=== PATIENT | female | born 1980 | race African-American/Black ===

== ENCOUNTER 2017-05-16 12:21 | Inpatient (IN) ==
[2017-05-16] MEDS ORDERED: BUTORPHANOL 2 MG/ML VIAL IV PRN (13:12)
[2017-05-16] MEDS ORDERED: ONDANSETRON 4 MG/2 ML VIAL IV PRN ×2 (13:12→18:04)
[2017-05-16] MEDS ORDERED: MEPERIDINE 50 MG/1 ML VIAL IV PRN (13:12)
[2017-05-16] MEDS ORDERED: LACTATED RINGERS 500 ML IV PRN (13:12)
[2017-05-16] MEDS ORDERED: AMPICILLIN INJ 2,000 MG in SODIUM CHLORIDE 0.9% 100 ML IV ONE (13:15)
[2017-05-16] MEDS ORDERED: LACTATED RINGERS 1,000 ML IV SCH (13:30)
[2017-05-16] MEDS ORDERED: OXYTOCIN/LR 20 UNIT/1,000 ML BAG IV SCH (13:30)
[2017-05-16 13:43] LABS: Basophils % 0.1 % (0.0-0.8); Eosinophils # 0.1 10*3/uL (0.0-0.87); Eosinophils % 0.9 % (0.00-10.9); Hematocrit 29.8 VOL% (35.7-47.0); Hemoglobin 9.7 GM/DL (12.0-16.0); Immature Granulocytes % 0.5 %; Immature Granulocytes Absolute 0.07 #; Lymphocytes # 2.4 10*3/uL (1.4-4.0); Lymphocytes % 16.4 % (21.3-54.2); Mean Corpuscular HGB Conc 32.6 GM/DL (32-36); Mean Corpuscular Hemoglobin 27 PG (27-34); Mean Corpuscular Volume 81.4 FL (87-102); Mean Platelet Volume 12.2 FL (9.6-12.0); Monocytes % 7.1 % (1.7-12.7); Neutrophils # 11.1 10*3/uL (1.4-7.4); Platelet Count 195 T/CUMM (130-400); Red Blood Count 3.66 MC/CUMM (3.8-5.5); Red Cell Distribution Width 15.3 % (9.3-17.3); White Blood Count 14.7 T/CUMM (4-12)
[2017-05-16 14:09] LABS: Apearance,Urine CLEAR (Clear); Bilirubin,Urine Negative (Negative); Blood, Urine Negative (Negative); Glucose,Urine (UA) Negative (Negative); Ketones,Urine Negative (Negative); Mucus,Urine Few /LPF (Occasional); Nitrite,Urine Negative (Negative); Protein,Urine Negative; RBC,Urine 1 /HPF (0-4); Squamous Epithelial Cell,Urine Occasional /HPF (0-10); Urine Color Yellow (Yellow); Urine Specific Gravity 1.016 (1.001-1.035); WBC,Urine 1 /HPF (0-6)
[2017-05-16] MEDS ORDERED: AMPICILLIN 1,000 MG VIAL ONE (16:44)
[2017-05-16] MEDS ORDERED: SODIUM CHLORIDE 0.9% 100 ML IV ONE (16:46)
[2017-05-16] MEDS ORDERED: LIDOCAINE 1% 50 ML VIAL ONE (17:44)
[2017-05-16] MEDS ORDERED: AMPICILLIN INJ 1,000 MG in SODIUM CHLORIDE 0.9% 100 ML IV SCH (18:00)
[2017-05-16] MEDS ORDERED: DIPH/TET/ACEL PERT BOOSTER VACCINE 0.5 ML VIAL IM ONE (18:04)
[2017-05-16] MEDS ORDERED: RHO(D) IMMUNE GLOBULIN 300 MCG SYRINGE IM ONE (18:04)
[2017-05-16] MEDS ORDERED: BENZOCAINE 20%/MENTHOL 0.5% SPRAY 56 GM CAN TOP PRN (18:04)
[2017-05-16] MEDS ORDERED: oxyCODONE/ACETAMINOPHEN 5-325 MG TABLET PO PRN (18:04)
[2017-05-16] MEDS ORDERED: GLUCAGON 1 MG VIAL IM PRN (18:04)
[2017-05-16] MEDS ORDERED: OXYTOCIN/LR 20 UNIT/1,000 ML BAG IV ONE (18:04)
[2017-05-16] MEDS ORDERED: BISACODYL 10 MG SUPP RECTAL PRN (18:04)
[2017-05-16] MEDS ORDERED: WITCH HAZEL PADS 100/JAR TOP PRN (18:04)
[2017-05-16] MEDS ORDERED: LANOLIN 50% CREAM 0.3 OZ TUBE TOP PRN (18:04)
[2017-05-16] MEDS ORDERED: MEASLES/MUMPS/RUBELLA VACCINE 0.5 ML VIAL SUBCUT ONE (18:04)
[2017-05-16] MEDS ORDERED: ACETAMINOPHEN 325 MG TABLET PO PRN (18:04)
[2017-05-16] MEDS ORDERED: HYDROCORTISONE 2.5% RECTAL CREAM 30 GM TUBE TOP PRN (18:04)
[2017-05-16] MEDS ORDERED: DEXTROSE 50% 25 GM/50 ML VIAL IV PRN (18:04)
[2017-05-16 18:57] LABS: Barbiturates Screen,Urine Negative (Negative); Benzodiazepines Screen,Urine Negative (Negative); Cannabinoid Screen,Urine Negative (Negative); Opiate Screen,Urine Negative (Negative); Phencyclidine Screen,Urine Negative (Negative)
[2017-05-16] MEDS: DOCUSATE SODIUM 100 MG CAPSULE PO SCH (21:19)
[2017-05-16] MEDS: FERROUS SULFATE 325 MG TABLET PO SCH (21:19)
[2017-05-16] MEDS: oxyCODONE/ACETAMINOPHEN 5-325 MG TABLET PO PRN (23:33)
[2017-05-17] MEDS: IBUPROFEN 800 MG TABLET PO PRN ×2 (03:37→15:12)
[2017-05-17 06:58] LABS: Basophils % 0.1 % (0.0-0.8); Eosinophils # 0.1 10*3/uL (0.0-0.87); Eosinophils % 0.7 % (0.00-10.9); Hematocrit 25.7 VOL% (35.7-47.0); Hemoglobin 8.3 GM/DL (12.0-16.0); Immature Granulocytes % 0.4 %; Immature Granulocytes Absolute 0.06 #; Lymphocytes # 2.8 10*3/uL (1.4-4.0); Lymphocytes % 18.2 % (21.3-54.2); Mean Corpuscular HGB Conc 32.3 GM/DL (32-36); Mean Corpuscular Hemoglobin 26 PG (27-34); Mean Corpuscular Volume 79.3 FL (87-102); Mean Platelet Volume 11.9 FL (9.6-12.0); Monocytes # 1.3 10*3/uL (0.11-0.8); Monocytes % 8.2 % (1.7-12.7); Neutrophils % 72.4 % (38.7-73.9); Platelet Count 169 T/CUMM (130-400); Red Blood Count 3.24 MC/CUMM (3.8-5.5); Red Cell Distribution Width 15.1 % (9.3-17.3); White Blood Count 15.2 T/CUMM (4-12)
[2017-05-17] MEDS: FERROUS SULFATE 325 MG TABLET PO SCH ×3 (09:33→20:55)
[2017-05-17] MEDS: DOCUSATE SODIUM 100 MG CAPSULE PO SCH ×2 (09:33→20:55)
[2017-05-18] MEDS: IBUPROFEN 800 MG TABLET PO PRN (05:35)
[2017-05-18] MEDS: oxyCODONE/ACETAMINOPHEN 5-325 MG TABLET PO PRN (05:35)
[2017-05-18] MEDS: DOCUSATE SODIUM 100 MG CAPSULE PO SCH (08:39)
[2017-05-18] MEDS: FERROUS SULFATE 325 MG TABLET PO SCH (08:39)
[2017-05-18 11:17] VITALS: BP 149/70
[2017-05-18] MEDS ORDERED: INFLUENZA VIRUS VACCINE 0.5 ML SYRINGE IM ONE (14:00)
== END 2017-05-18 14:40 | disposition home or self-care (01) | DRG 560 ==
LOC: N.LDOUT 12:21 → N.LD 12:23 → N.OB 20:53
PROVIDERS: ADMIT Obstetrics & Gynecology; ATTEND Nurse Practitioner Women's Health

== ENCOUNTER 2017-08-15 23:06 | Inpatient (IN) ==
[2017-08-16 01:43] LABS: INR 1.2; PT Patient Result 12.8 SECS
[2017-08-16] MEDS ORDERED: FUROSEMIDE 40 MG/4 ML VIAL ONE (04:00)
[2017-08-16] MEDS ORDERED: MORPHINE 4 MG/1 ML VIAL IV PRN (04:17)
[2017-08-16] MEDS ORDERED: ACETAMINOPHEN 325 MG TABLET PO PRN (04:17)
[2017-08-16] MEDS ORDERED: ONDANSETRON 4 MG/2 ML VIAL IV PRN (04:17)
[2017-08-16 04:59] LABS: Basophils % 0.1 % (0.0-0.8); Eosinophils # 0.1 10*3/uL (0.0-0.87); Eosinophils % 0.5 % (0.00-10.9); Hematocrit 34.3 VOL% (35.7-47.0); Hemoglobin 11.5 GM/DL (12.0-16.0); Immature Granulocytes % 0.3 %; Immature Granulocytes Absolute 0.03 #; Lymphocytes # 5.7 10*3/uL (1.4-4.0); Lymphocytes % 47.9 % (21.3-54.2); Mean Corpuscular HGB Conc 33.5 GM/DL (32-36); Mean Corpuscular Hemoglobin 26 PG (27-34); Mean Corpuscular Volume 76.6 FL (87-102); Mean Platelet Volume 13.4 FL (9.6-12.0); Monocytes # 1.2 10*3/uL (0.11-0.8); Monocytes % 9.9 % (1.7-12.7); NRBC # 0.02 10*3/uL; Neutrophils # 4.9 10*3/uL (1.4-7.4); Neutrophils % 41.3 % (38.7-73.9); Platelet Count 175 T/CUMM (130-400); Red Blood Count 4.48 MC/CUMM (3.8-5.5); Red Cell Distribution Width 13.8 % (9.3-17.3); White Blood Count 11.8 T/CUMM (4-12)
[2017-08-16 05:22] LABS: Albumin 2.6 G/DL (3.4-5.0); Bilirubin,Total 3.2 MG/DL (0.2-1.0); Calcium 8.2 MG/DL (8.5-10.1); Potassium 3.6 MMOL/L (3.5-5.1); Risk Ratio 3.79; Total Protein 6.5 G/DL (6.4-8.3); VLDL CHOLESTEROL 17.8 MG/DL
[2017-08-16 05:32] LABS: Giant Platelets Few; Hypochromasia 1+; Platelet Estimate Normal
[2017-08-16 05:33] LABS: Ovalocytes Slight
[2017-08-16] MEDS ORDERED: FUROSEMIDE 40 MG/4 ML VIAL IV ONE (06:15)
[2017-08-16] MEDS ORDERED: NITROGLYCERIN SL 0.4 MG TABLET SL PRN (06:38)
[2017-08-16 07:57] LABS: Apearance,Urine CLEAR (Clear); Bilirubin,Urine Negative (Negative); Blood, Urine Small mg/dL (Negative); Glucose,Urine (UA) Negative (Negative); Ketones,Urine Negative (Negative); Nitrite,Urine Negative (Negative); Protein,Urine Negative; RBC,Urine 2 /HPF (0-4); Squamous Epithelial Cell,Urine Occasional /HPF (0-10); Urine Color Straw (Yellow); Urine Specific Gravity 1.021 (1.001-1.035); Urine Urobilinogen < 2.0 EU/DL (0.2-1.0); WBC,Urine <1 /HPF (0-6)
[2017-08-16] MEDS ORDERED: ATENOLOL 50 MG TABLET PO SCH (09:00)
[2017-08-16] MEDS ORDERED: CHOLECALCIFEROL 5,000 UNIT TABLET PO SCH (09:00)
[2017-08-16] MEDS: FERROUS SULFATE 325 MG TABLET PO SCH (09:13)
[2017-08-16] MEDS: LISINOPRIL 20 MG TABLET PO SCH (09:13)
[2017-08-16] MEDS: PANTOPRAZOLE 40 MG TABLET PO SCH (09:14)
[2017-08-16] MEDS: ASPIRIN EC 81 MG TABLET PO SCH (10:29)
[2017-08-16] MEDS ORDERED: MAGNESIUM SULF RIDER 2 GM in PREMIX 1 EACH IV ONE (11:05)
[2017-08-16 13:25] LABS: Barbiturates Screen,Urine Negative (Negative); Benzodiazepines Screen,Urine Negative (Negative); Cannabinoid Screen,Urine Negative (Negative); Opiate Screen,Urine Negative (Negative); Phencyclidine Screen,Urine Negative (Negative)
[2017-08-16] MEDS: PROPRANOLOL 20 MG TABLET PO SCH ×2 (14:38→21:24)
[2017-08-16] MEDS: HYDROCORTISONE 100 MG VIAL IV SCH ×2 (14:39→22:00)
[2017-08-16] MEDS ORDERED: methIMAzole 10 MG TABLET PO SCH (15:00)
[2017-08-16] MEDS ORDERED: POTASSIUM IODIDE ORAL SOLN 1,000 MG/ML BOTTLE PO SCH (15:00)
[2017-08-16] MEDS: methIMAzole 10 MG TABLET PO SCH ×2 (16:10→21:24)
[2017-08-16] MEDS: MAGNESIUM OXIDE 400 MG TABLET PO SCH ×2 (16:10→21:24)
[2017-08-16] MEDS: POTASSIUM CHLORIDE 20 MEQ TABLET PO SCH (16:10)
[2017-08-16] MEDS: FUROSEMIDE 40 MG/4 ML VIAL IV SCH (16:11)
[2017-08-16] MEDS ORDERED: ENOXAPARIN 40 MG/0.4 ML SYRINGE SUBCUT SCH (20:00)
[2017-08-17] MEDS: HYDROCORTISONE 100 MG VIAL IV SCH ×3 (05:50→17:08)
[2017-08-17 05:56] LABS: Basophils % 0.1 % (0.0-0.8); Eosinophils % 0.4 % (0.00-10.9); Hemoglobin 10.4 GM/DL (12.0-16.0); Immature Granulocytes % 0.4 %; Immature Granulocytes Absolute 0.03 #; Lymphocytes # 2.8 10*3/uL (1.4-4.0); Lymphocytes % 36.5 % (21.3-54.2); Mean Corpuscular HGB Conc 33.5 GM/DL (32-36); Mean Corpuscular Hemoglobin 26 PG (27-34); Mean Corpuscular Volume 76.5 FL (87-102); Monocytes # 0.9 10*3/uL (0.11-0.8); Monocytes % 12.1 % (1.7-12.7); NRBC # 0.04 10*3/uL; Neutrophils # 3.8 10*3/uL (1.4-7.4); Neutrophils % 50.5 % (38.7-73.9); Platelet Count 115 T/CUMM (130-400); Red Blood Count 4.05 MC/CUMM (3.8-5.5); Red Cell Distribution Width 13.4 % (9.3-17.3); White Blood Count 7.6 T/CUMM (4-12)
[2017-08-17 06:03] LABS: Calcium 7.9 MG/DL (8.5-10.1); Osmolality,Calculated 284.1 MOS/KG (273-304); Potassium 3.5 MMOL/L (3.5-5.1)
[2017-08-17 06:07] LABS: Albumin 2.5 G/DL (3.4-5.0); Bilirubin,Direct 0.54 MG/DL (0.0-0.20); Bilirubin,Indirect 1.7 MG/DL (0.0-1.0); Bilirubin,Total 2.2 MG/DL (0.2-1.0); Total Protein 6.3 G/DL (6.4-8.3)
[2017-08-17 08:54] LABS: Giant Platelets Few; Hypochromasia 1+; Lymphocytes 41 % (20-55); Ovalocytes Slight; Platelet Estimate Decreased; Segmented Neutrophils 52 % (50-85); Total Cells Counted 100
[2017-08-17] MEDS: methIMAzole 10 MG TABLET PO SCH ×3 (09:00→17:08)
[2017-08-17] MEDS: POTASSIUM CHLORIDE 20 MEQ TABLET PO SCH (09:01)
[2017-08-17] MEDS: LISINOPRIL 20 MG TABLET PO SCH (09:01)
[2017-08-17] MEDS: FERROUS SULFATE 325 MG TABLET PO SCH (09:01)
[2017-08-17] MEDS: PROPRANOLOL 20 MG TABLET PO SCH ×2 (09:01→14:25)
[2017-08-17] MEDS: FUROSEMIDE 40 MG/4 ML VIAL IV SCH ×2 (09:01→15:25)
[2017-08-17] MEDS: MAGNESIUM OXIDE 400 MG TABLET PO SCH (09:01)
[2017-08-17] MEDS: PANTOPRAZOLE 40 MG TABLET PO SCH (09:01)
[2017-08-17] MEDS: ASPIRIN EC 81 MG TABLET PO SCH (09:01)
[2017-08-17] MEDS: methIMAzole 5 MG TABLET PO SCH ×3 (09:33→17:08)
[2017-08-17 16:05] VITALS: BP 130/77
== END 2017-08-17 18:45 | disposition hospice, home (50) | DRG 293 ==
LOC: SUATTDRO 08-16 00:13 → N.TELEN 08-16 00:13
PROVIDERS: ADMIT Family Medicine; ATTEND Hospitalist

== ENCOUNTER 2018-02-22 01:44 | Inpatient (IN) ==
[2018-02-22] MEDS ORDERED: SODIUM CHLORIDE 0.9% 1,000 ML IV STA (01:53)
[2018-02-22] MEDS ORDERED: MORPHINE 4 MG/1 ML VIAL IV STA (02:20)
[2018-02-22] MEDS ORDERED: ONDANSETRON 4 MG/2 ML VIAL IV STA (02:20)
[2018-02-22 06:53] LABS: Albumin 1.9 G/DL (3.4-5.0); Bilirubin,Total 2.2 MG/DL (0.2-1.0); Calcium 8.1 MG/DL (8.5-10.1); Osmolality,Calculated 274.7 MOS/KG (273-304); Potassium 3.7 MMOL/L (3.5-5.1); Total Protein 7.7 G/DL (6.4-8.3)
[2018-02-22] MEDS ORDERED: INFLUENZA VIRUS VACCINE 0.5 ML SYRINGE IM ONE (08:08)
[2018-02-22 08:49] LABS: Basophils % 0.4 % (0.0-0.8); Eosinophils % 0.5 % (0.00-10.9); Hematocrit 34.5 VOL% (35.7-47.0); Hemoglobin 10.7 GM/DL (12.0-16.0); Immature Granulocytes % 0.2 %; Immature Granulocytes Absolute 0.02 #; Lymphocytes # 4.2 10*3/uL (1.4-4.0); Mean Corpuscular Hemoglobin 24 PG (27-34); Mean Corpuscular Volume 77.9 FL (87-102); Monocytes % 11.9 % (1.7-12.7); NRBC # 0.02 10*3/uL; Platelet Count 218 T/CUMM (130-400); Red Blood Count 4.43 MC/CUMM (3.8-5.5); Red Cell Distribution Width 16.8 % (9.3-17.3); White Blood Count 8.2 T/CUMM (4-12)
[2018-02-22 09:20] LABS: Hypochromasia 1+; Lymphocytes 46 % (20-55); Ovalocytes Slight; Platelet Estimate Adequate; Segmented Neutrophils 43 % (50-85); Total Cells Counted 100
[2018-02-22] MEDS: cefTRIAXone 1,000 MG in SYRINGE 1 EACH IV SCH (09:21)
[2018-02-22] MEDS ORDERED: PROPRANOLOL 10 MG TABLET PO SCH (11:30)
[2018-02-22 11:59] LABS: Hepatitis A Ab IgM Quant 0.04 Index; Hepatitis A Ab IgM Result Negative (Negative); Hepatitis B Core IgM Quant < 0.05 Index; Hepatitis B Core IgM Result Negative (Negative); Hepatitis B Surface Ag Quant < 0.10 Index; Hepatitis B Surface Ag Result Negative (Negative); Hepatitis C Virus Ab Quant 0.14 Index; Hepatitis C Virus Ab Result Negative (Negative)
[2018-02-22] MEDS: metroNIDAZOLE INJ 500 MG in PREMIX 1 EACH IV SCH ×2 (13:20→16:56)
[2018-02-22] MEDS: MORPHINE 4 MG/1 ML VIAL IV PRN (14:04)
[2018-02-22] MEDS: ONDANSETRON 4 MG/2 ML VIAL IV PRN (16:50)
[2018-02-22] MEDS: methIMAzole 10 MG TABLET PO SCH ×2 (16:50→19:17)
[2018-02-22] MEDS ORDERED: DEXTROSE 50% 25 GM/50 ML VIAL IV ONE ×2 (17:17→17:20)
[2018-02-22 17:19] LABS: Apearance,Urine CLEAR (Clear); Bilirubin,Urine Negative (Negative); Blood, Urine Large mg/dL (Negative); Glucose,Urine (UA) Negative (Negative); Granular Casts,Urine 3 /LPF (0-1); Hyaline Casts,Urine 4 /LPF (0-3); Ketones,Urine 5 mg/dL (Negative); Mucus,Urine Moderate /LPF (Occasional); Nitrite,Urine Negative (Negative); Protein,Urine >=500 MG/DL; RBC,Urine 12 /HPF (0-4); Squamous Epithelial Cell,Urine Occasional /HPF (0-10); Urine Specific Gravity 1.025 (1.001-1.035)
[2018-02-22 17:23] LABS: Urine Color Dark yellow (Yellow); WBC,Urine 5 /HPF (0-6)
[2018-02-22 17:27] LABS: Barbiturates Screen,Urine Negative (Negative); Benzodiazepines Screen,Urine Negative (Negative); Cannabinoid Screen,Urine Positive (Negative); Opiate Screen,Urine Positive (Negative); Phencyclidine Screen,Urine Negative (Negative)
[2018-02-22] MEDS: CAPTOPRIL 6.25 MG TABLET PO SCH ×2 (18:21→21:27)
[2018-02-22] MEDS: CARVEDILOL 3.125 MG TABLET PO SCH ×2 (19:17→21:40)
[2018-02-22 20:25] LABS: Hematocrit 32.1 VOL% (35.7-47.0); Hemoglobin 9.9 GM/DL (12.0-16.0); Immature Granulocytes % 0.6 %; Immature Granulocytes Absolute 0.05 #; Lymphocytes # 1.1 10*3/uL (1.4-4.0); Lymphocytes % 13.8 % (21.3-54.2); Mean Corpuscular HGB Conc 30.8 GM/DL (32-36); Mean Corpuscular Hemoglobin 24 PG (27-34); Mean Corpuscular Volume 78.9 FL (87-102); Mean Platelet Volume 11.1 FL (9.6-12.0); Monocytes # 0.7 10*3/uL (0.11-0.8); Monocytes % 9.1 % (1.7-12.7); NRBC # 0.02 10*3/uL; Neutrophils # 6.2 10*3/uL (1.4-7.4); Neutrophils % 76.5 % (38.7-73.9); Platelet Count 168 T/CUMM (130-400); Red Blood Count 4.07 MC/CUMM (3.8-5.5); Red Cell Distribution Width 16.7 % (9.3-17.3); White Blood Count 8.1 T/CUMM (4-12)
[2018-02-22] MEDS ORDERED: methIMAzole 10 MG TABLET PO SCH (21:00)
[2018-02-22 21:27] LABS: Calcium 7.6 MG/DL (8.5-10.1); Osmolality,Calculated 285.7 MOS/KG (273-304); Potassium 3.9 MMOL/L (3.5-5.1)
[2018-02-22 21:32] LABS: Troponin I 0.175 NG/ML (0.00-0.045)
[2018-02-22] MEDS: FAMOTIDINE 20 MG TABLET PO SCH (21:40)
[2018-02-23] MEDS: methIMAzole 10 MG TABLET PO SCH ×4 (01:00→21:45)
[2018-02-23] MEDS: metroNIDAZOLE INJ 500 MG in PREMIX 1 EACH IV SCH ×3 (02:00→15:16)
[2018-02-23 03:13] LABS: Basophils % 0.1 % (0.0-0.8); Eosinophils % 0.3 % (0.00-10.9); Hematocrit 31.9 VOL% (35.7-47.0); Hemoglobin 9.7 GM/DL (12.0-16.0); Immature Granulocytes % 0.3 %; Lymphocytes # 2.7 10*3/uL (1.4-4.0); Lymphocytes % 33.5 % (21.3-54.2); Mean Corpuscular HGB Conc 30.4 GM/DL (32-36); Mean Corpuscular Hemoglobin 24 PG (27-34); Mean Corpuscular Volume 77.6 FL (87-102); Mean Platelet Volume 10.9 FL (9.6-12.0); Monocytes # 0.9 10*3/uL (0.11-0.8); Monocytes % 11.6 % (1.7-12.7); Neutrophils # 4.3 10*3/uL (1.4-7.4); Neutrophils % 54.2 % (38.7-73.9); Platelet Count 181 T/CUMM (130-400); Red Blood Count 4.11 MC/CUMM (3.8-5.5); Red Cell Distribution Width 16.5 % (9.3-17.3); White Blood Count 7.9 T/CUMM (4-12)
[2018-02-23 03:14] LABS: Immature Granulocytes Absolute 0.02 #; NRBC # 0.03 10*3/uL
[2018-02-23 03:33] LABS: Albumin 1.8 G/DL (3.4-5.0); Bilirubin,Total 1.7 MG/DL (0.2-1.0); Calcium 7.5 MG/DL (8.5-10.1); Osmolality,Calculated 273.1 MOS/KG (273-304); Potassium 4.3 MMOL/L (3.5-5.1); Total Protein 7.4 G/DL (6.4-8.3)
[2018-02-23 03:45] LABS: Platelet Estimate Normal; Total Cells Counted 100
[2018-02-23 03:46] LABS: Band Neutrophils 4 % (0-10); Eosinophils 2 % (0-10); Hypochromasia 2+; Lymphocytes 38 % (20-55); Ovalocytes 1+; Segmented Neutrophils 47 % (50-85); Target Cells 1+
[2018-02-23 03:47] LABS: Anisocytosis 1+; Microcytosis 1+
[2018-02-23] MEDS: ONDANSETRON 4 MG/2 ML VIAL IV PRN ×2 (06:03→13:20)
[2018-02-23] MEDS: cefTRIAXone 1,000 MG in SYRINGE 1 EACH IV SCH (06:03)
[2018-02-23] MEDS: FAMOTIDINE 20 MG TABLET PO SCH ×2 (08:38→21:45)
[2018-02-23] MEDS: CARVEDILOL 3.125 MG TABLET PO SCH ×2 (08:45→22:42)
[2018-02-23] MEDS: CAPTOPRIL 6.25 MG TABLET PO SCH ×3 (08:45→22:42)
[2018-02-23] MEDS ORDERED: MAGNESIUM SULF RIDER 4 GM in PREMIX 1 EACH IV ONE (11:00)
[2018-02-23] MEDS: MORPHINE 4 MG/1 ML VIAL IV PRN (13:22)
[2018-02-24] MEDS: metroNIDAZOLE INJ 500 MG in PREMIX 1 EACH IV SCH ×2 (01:40→09:15)
[2018-02-24 05:48] LABS: Basophils % 0.3 % (0.0-0.8); Eosinophils # 0.1 10*3/uL (0.0-0.87); Eosinophils % 0.8 % (0.00-10.9); Hematocrit 31.5 VOL% (35.7-47.0); Hemoglobin 9.9 GM/DL (12.0-16.0); Immature Granulocytes % 0.2 %; Immature Granulocytes Absolute 0.01 #; Lymphocytes # 2.6 10*3/uL (1.4-4.0); Lymphocytes % 43.1 % (21.3-54.2); Mean Corpuscular HGB Conc 31.4 GM/DL (32-36); Mean Corpuscular Hemoglobin 24 PG (27-34); Mean Corpuscular Volume 76.5 FL (87-102); Mean Platelet Volume 11.7 FL (9.6-12.0); Monocytes # 0.9 10*3/uL (0.11-0.8); Monocytes % 14.9 % (1.7-12.7); NRBC # 0.02 10*3/uL; Neutrophils # 2.5 10*3/uL (1.4-7.4); Neutrophils % 40.7 % (38.7-73.9); Platelet Count 150 T/CUMM (130-400); Red Blood Count 4.12 MC/CUMM (3.8-5.5); Red Cell Distribution Width 16.1 % (9.3-17.3); White Blood Count 6.1 T/CUMM (4-12)
[2018-02-24 06:08] LABS: Albumin 1.6 G/DL (3.4-5.0); Bilirubin,Total 1.5 MG/DL (0.2-1.0); Calcium 7.8 MG/DL (8.5-10.1); Osmolality,Calculated 277.7 MOS/KG (273-304); Potassium 3.4 MMOL/L (3.5-5.1); Total Protein 6.7 G/DL (6.4-8.3)
[2018-02-24] MEDS: cefTRIAXone 1,000 MG in SYRINGE 1 EACH IV SCH (06:32)
[2018-02-24] MEDS: CAPTOPRIL 6.25 MG TABLET PO SCH (08:53)
[2018-02-24] MEDS: methIMAzole 10 MG TABLET PO SCH (08:54)
[2018-02-24] MEDS: CARVEDILOL 3.125 MG TABLET PO SCH (08:54)
[2018-02-24] MEDS: FAMOTIDINE 20 MG TABLET PO SCH (08:54)
[2018-02-24] MEDS ORDERED: MAGNESIUM SULF RIDER 2 GM in PREMIX 1 EACH IV ONE (14:24)
[2018-02-24] MEDS: POTASSIUM CHLORIDE 20 MEQ TABLET PO SCH ×2 (14:53→20:08)
[2018-02-25 05:22] LABS: Basophils % 0.1 % (0.0-0.8); Eosinophils # 0.1 10*3/uL (0.0-0.87); Eosinophils % 0.7 % (0.00-10.9); Hematocrit 32.5 VOL% (35.7-47.0); Immature Granulocytes % 0.4 %; Immature Granulocytes Absolute 0.03 #; Lymphocytes # 2.8 10*3/uL (1.4-4.0); Lymphocytes % 38.6 % (21.3-54.2); Mean Corpuscular HGB Conc 30.8 GM/DL (32-36); Mean Corpuscular Hemoglobin 24 PG (27-34); Mean Platelet Volume 11.6 FL (9.6-12.0); Monocytes % 12.9 % (1.7-12.7); Neutrophils # 3.5 10*3/uL (1.4-7.4); Neutrophils % 47.3 % (38.7-73.9); Platelet Count 140 T/CUMM (130-400); Red Blood Count 4.22 MC/CUMM (3.8-5.5); Red Cell Distribution Width 16.4 % (9.3-17.3); White Blood Count 7.3 T/CUMM (4-12)
[2018-02-25 05:36] LABS: Calcium 7.6 MG/DL (8.5-10.1); Osmolality,Calculated 274.7 MOS/KG (273-304); Potassium 4.8 MMOL/L (3.5-5.1)
[2018-02-25] MEDS: POTASSIUM CHLORIDE 20 MEQ TABLET PO SCH ×2 (08:36→20:33)
[2018-02-25] MEDS ORDERED: MAGNESIUM SULF RIDER 2 GM in PREMIX 1 EACH IV ONE (09:19)
[2018-02-25] MEDS ORDERED: MORPHINE 4 MG/1 ML VIAL IV PRN (09:19)
[2018-02-25] MEDS: FAMOTIDINE 20 MG TABLET PO SCH ×2 (10:14→20:33)
[2018-02-25] MEDS: methIMAzole 10 MG TABLET PO SCH ×3 (10:14→20:34)
[2018-02-25] MEDS ORDERED: ONDANSETRON 4 MG/2 ML VIAL IV PRN (10:51)
[2018-02-25] MEDS ORDERED: methIMAzole 10 MG TABLET PO SCH (15:00)
[2018-02-25] MEDS: MAGNESIUM CHLORIDE 64 MG TABLET PO SCH ×2 (15:13→20:33)
[2018-02-25] MEDS: FERROUS SULFATE 325 MG TABLET PO SCH (20:33)
[2018-02-26 05:58] LABS: Basophils % 0.3 % (0.0-0.8); Eosinophils # 0.1 10*3/uL (0.0-0.87); Eosinophils % 1.1 % (0.00-10.9); Hematocrit 33.4 VOL% (35.7-47.0); Hemoglobin 10.1 GM/DL (12.0-16.0); Immature Granulocytes % 0.1 %; Immature Granulocytes Absolute 0.01 #; Lymphocytes # 2.8 10*3/uL (1.4-4.0); Lymphocytes % 40.8 % (21.3-54.2); Mean Corpuscular HGB Conc 30.2 GM/DL (32-36); Mean Corpuscular Hemoglobin 24 PG (27-34); Mean Corpuscular Volume 78.8 FL (87-102); Mean Platelet Volume 12.2 FL (9.6-12.0); Monocytes # 0.9 10*3/uL (0.11-0.8); Monocytes % 13.5 % (1.7-12.7); Neutrophils # 3.1 10*3/uL (1.4-7.4); Neutrophils % 44.2 % (38.7-73.9); Platelet Count 137 T/CUMM (130-400); Red Blood Count 4.24 MC/CUMM (3.8-5.5); Red Cell Distribution Width 16.5 % (9.3-17.3)
[2018-02-26 06:22] LABS: Osmolality,Calculated 275.5 MOS/KG (273-304); Potassium 4.5 MMOL/L (3.5-5.1)
[2018-02-26 06:31] LABS: Hypochromasia 1+; Target Cells Few
[2018-02-26 06:32] LABS: Ovalocytes 1+
[2018-02-26 06:33] LABS: Platelet Estimate Adequate; Polychromasia Few
[2018-02-26 07:57] VITALS: BP 111/75
[2018-02-26] MEDS ORDERED: MAGNESIUM SULFATE 1 GM/2 ML VIAL IM ONE (08:03)
[2018-02-26] MEDS ORDERED: MAGNESIUM CHLORIDE 64 MG TABLET PO SCH (09:00)
[2018-02-26] MEDS: FERROUS SULFATE 325 MG TABLET PO SCH (09:24)
[2018-02-26] MEDS: POTASSIUM CHLORIDE 20 MEQ TABLET PO SCH (09:24)
[2018-02-26] MEDS: methIMAzole 10 MG TABLET PO SCH (09:24)
[2018-02-26] MEDS: FAMOTIDINE 20 MG TABLET PO SCH (09:25)
== END 2018-02-26 11:28 | disposition home or self-care (01) ==
LOC: EDUNIT# → EDBD → N.ED 01:44 → SUATTDRO 06:07 → N.EDINP 06:07 → N.3E 06:35 → N.CC 18:11 → N.TELES 02-24 14:23
PROVIDERS: ADMIT Internal Medicine; ATTEND Hospitalist